=== PATIENT | female | born 1940 | race Caucasian/White ===

== ENCOUNTER 2017-07-05 10:02 | Emergency (ER) | payer MEDICARE, BC ==
[2017-07-05] MEDS ORDERED: Ketorolac Tromethamine 30 MG/ML VIAL ONE ×2 (14:06→14:08)
--- NOTE | 2017-07-05 14:12 | RAD ---
AP VIEW OF THE PELVIS: INDICATION: Tailbone pain. FINDINGS: Overlying bowel gas within the small bowel and the rectum limits evaluation of the lower sacrum and c occyx. The sacral arcs of the upper sacrum appear intact. The SI joints appear within normal limits . There is diffuse osteopenia. There is healed fracture deformity beyond the left obturator ring. There is mild degenerative change of both hips. There is posterolateral spinal instrumentation at L4 -5. There are scattered vascular calcifications. IMPRESSION: 1. No definite acute osseous abnormality. 2. Some limitation of the exam. POS: [facility]
== END 2017-07-05 14:34 | disposition home or self-care (01) ==
LOC: ERS 10:02
DX: G89.29 Other chronic pain (principal); M53.3 Sacrococcygeal disorders, not elsewhere classified; I10 Essential (primary) hypertension; F32.9 Major depressive disorder, single episode, unspecified; M81.0 Age-related osteoporosis without current pathological fracture
CPT/HCPCS: 72170; 96372; J1885

== ENCOUNTER 2018-03-19 08:12 | Emergency (ER) | payer MEDICARE, BC ==
[2018-03-19] MEDS ORDERED: Methocarbamol 500 MG TAB PO SCH (09:00)
--- NOTE | 2018-03-19 10:50 | RAD ---
3 VIEWS LUMBAR SPINE: Date; 03/19/18 COMPARISON: CT abdomen and pelvis dated 12/21/16. HISTORY: Chronic back pain with recent worsening. FINDINGS: Atherosclerotic calcification of the abdominal aorta. The bones are demineralized, significantly limi ting assessment of the osseous structures for fracture. Bilateral L5 and S1 pedicle screws are presen t with vertically oriented interlocking rods. There is an anterior wedge compression fracture of T12, which is stable when compared to 12/21/16 CT of abdomen and pelvis. There is a mild superior end omar te fracture of L1, new when compared to the prior CT. There is a new fracture of the L3 vertebral bod y, not well delineated secondary to osteopenia, which appears to primarily involve the inferior end p late with estimated height loss of at least 40-50%. IMPRESSION: Osteopenia limits detailed assessment. Fracture of L1 and L3 vertebral bodies, new when compared to p rior CT. Old T12 fracture. The extent of fracture deformity could be best assessed via CT examination. POS: [facility]
--- NOTE | 2018-03-19 12:33 | CT ---
CT OF THE LUMBAR SPINE: Date: 03/19/18 COMPARISON: CT of abdomen and pelvis dated 12/21/16. HISTORY: Back pain, assess for fracture. TECHNIQUE: Axial CT imaging at 2.5 mm intervals from the lower thoracic spine through the lower sacrum without c ontrast. Coronal and sagittal reformatted imaging obtained. FINDINGS: The osseous structures are markedly osteopenic, which limits detailed assessment for nondisplaced fra cture. Bilateral L5 and S1 pedicle screws are present with vertically oriented interlocking rods. There is a nterolisthesis of L5 on S1 measuring approximately 8.0 mm. There is a large, stable, incompletely imaged hiatal hernia. Incompletely imaged small left pleural e ffusion. Mild linear density noted in medial right lung base. Limited assessment of the vascular structures without contrast media demonstrates extensive multifoca l atherosclerotic calcification of the abdominal aorta and its branches. There is extensive incompletely assessed sigmoid diverticulosis without evidence for diverticulitis. There is a small, low density lesion within the anterior aspect of the right renal mid pole, unchange d when compared to the 2016 exam. There is an adrenal mass on the left measuring at least 5.3 cm AP dimension and 4.7 cm in transverse dimension, incompletely characterized on this exam. Of note, this mass does not appear significantly changed when compared to CT angiogram of abdomen latisha ed 11/05/15. A severe anterior wedge compression fracture with complete loss of vertebral body height is noted at T12. The degree of vertebral body height loss has worsened significantly when compared to the 7 exam. When compared to that most recent prior exam, there is a new superior end plate fracture of L 1 with approximately 15-20% loss of vertebral body height centrally. There is a new anterior wedge co mpression fracture, primarily involving the inferior end plate at L3, with approximately 40% loss of vertebral body height anteriorly. Evaluation for central canal and/or neural foraminal stenosis is limited on routine CT. T11-12: Mild retropulsion associated with T12 burst fracture, with probably mild central canal steno sis. T12-L1: No osseous cause of significant central canal or neural foraminal stenosis. L1-2: Left foraminal and post foraminal disc protrusion present. No osseous cause of significant alon tral canal or neural foraminal stenosis. L2-3: Foraminal and post foraminal disc protrusion on the left. Mild bilateral facet hypertrophy. No osseous cause of significant central canal or neural foraminal stenosis. L3-4: Mild bilateral facet hypertrophy. Disc osteophytic complex present with probable mild central canal stenosis and probable mild neural foraminal stenosis. No significant osseous retropulsion is se en involving the L3 vertebral body fracture. L4-5: Bilateral facet hypertrophy. No osseous cause of significant central canal or neural foraminal stenosis. L5-S1: Evaluation is limited secondary to streak artifact from postoperative hardware. No obvious os seous cause of significant central canal or neural foraminal stenosis. Stable old fracture involving lateral aspect of left sacral ala noted. There is increased density within the paraspinal soft tissues anterior to the L1 vertebral body sugge sting that this fracture is definitely acute. IMPRESSION: 1. New fractures of L1 and L3, and interval worsening of vertebral body height loss involving T12 bu rst fracture. 2. Stable left adrenal mass. 3. Diffuse marked osteopenia. 4. Sigmoid diverticulosis without evidence for diverticulitis. Of note, increased density in the anterior paraspinal soft tissues at L1 suggests that this fracture is definitely acute. No such soft tissue swelling is seen at L3, and thus, this fracture is of indete rminate age. POS: [facility]
[2018-03-19 15:31] LABS: #Lymphocytes 0.9 thou/uL (1.20-3.40); #Monocytes 0.5 thou/uL (0.11-0.59); #Neutrophils 5.9 thou/uL (1.40-6.50); %Basophils 0.2 % (0.0-1.0); %Eosinophils 0.1 % (0.0-10.0); %Lymphocytes 12.3 % (21.0-51.0); %Monocytes 7.3 % (0.0-10.0); %Neutrophils 80.1 % (42.0-75.0); Hemoglobin 11.3 g/dL (12.0-16.0); Mean Corpuscular HGB CONC 32.5 g/dL (32.0-36.0); Mean Corpuscular Volume 92.1 fL (78.0-98.0); Mean Platelet Volume 7.6 fL (7.4-10.4); Platelet Count 154 thou/uL (130-400); RBC Distribution Width 12.2 % (11.5-14.5); Red Blood Cell (RBC) Count 3.77 mill/uL (4.20-5.40); White Blood Cell (WBC) Count 7.3 thou/uL (4.8-10.8)
[2018-03-19 15:47] LABS: ALT (SGPT) 15 U/L (8-55); AST (SGOT) 18 U/L (5-34); Albumin 4.2 g/dL (3.4-4.8); Alkaline Phosphatase 46 U/L (40-150); Anion Gap 14 mmol/L (10-20); BUN (Urea Nitrogen) 16 mg/dL (9.8-20.1); Bilirubin, Total 0.6 mg/dL (0.2-1.2); Calc. Creatinine Clearance 0 mL/min (70-130); Calcium 10.4 mg/dL (7.8-10.44); Carbon Dioxide 30 mmol/L (23-31); Chloride 100 mmol/L (98-107); Estimated GFR-MDRD 80; Globulin 3.3 g/dL (2.4-3.5); Glucose 138 mg/dL (83-110); Potassium 4.1 mmol/L (3.5-5.1); Protein, Total 7.5 g/dL (6.0-8.3); Sodium 140 mmol/L (136-145)
== END 2018-03-19 17:13 ==
LOC: ERS 08:12
DX: S22.081A Stable burst fracture of T11-T12 vertebra, initial encounter for closed fracture (principal); I10 Essential (primary) hypertension; F32.9 Major depressive disorder, single episode, unspecified; Z79.899 Other long term (current) drug therapy; X58.XXXA Exposure to other specified factors, initial encounter
CPT/HCPCS: 36415; 72100; 72131; 80053; 85025

== ENCOUNTER 2018-09-05 09:00 | Emergency (ER) | payer MEDICARE, BC ==
--- NOTE | 2018-09-05 09:58 | RAD ---
XR Chest 1 View Portable History: Reason For Study Comparison: None. Findings: Abnormal nodular densities in left lower lobe. Exam is limited due to rightward patient rot ation. Heart size mildly enlarged. Likely a sliding hiatal hernia. Aortic ectasia. Moderate degenerative disease left shoulder. No acute osseous abnormality. Calcified granulomas right lower lobe. Impression: 1. Nodular densities left lower lobe. Nonemergent CT chest recommended. 2. Right distal clavicular osteolysis. 3. Mild cardiomegaly and aortic ectasia. 4. Likely large sliding hiatal hernia.
[2018-09-05 10:02] LABS: #Basophils 0.1 thou/uL (0.0-0.2); #Eosinphils 0.2 thou/uL (0.0-0.7); #Lymphocytes 1.6 thou/uL (1.20-3.40); #Monocytes 0.6 thou/uL (0.11-0.59); #Neutrophils 6.5 thou/uL (1.40-6.50); %Basophils 0.6 % (0.0-1.0); %Eosinophils 1.7 % (0.0-10.0); %Lymphocytes 18.4 % (21.0-51.0); %Monocytes 6.5 % (0.0-10.0); %Neutrophils 72.8 % (42.0-75.0); Hemoglobin 12.9 g/dL (12.0-16.0); Mean Corpuscular HGB CONC 33.9 g/dL (32.0-36.0); Mean Corpuscular Hemoglobin 31.9 pg (27.0-31.0); Mean Corpuscular Volume 94.2 fL (78.0-98.0); Platelet Count 206 thou/uL (130-400); RBC Distribution Width 12.9 % (11.5-14.5); Red Blood Cell (RBC) Count 4.04 mill/uL (4.20-5.40); White Blood Cell (WBC) Count 8.9 thou/uL (4.8-10.8)
[2018-09-05 10:15] LABS: ALT (SGPT) 18 U/L (8-55); AST (SGOT) 17 U/L (5-34); Albumin 4.1 g/dL (3.4-4.8); Alkaline Phosphatase 60 U/L (40-150); Anion Gap 9 mmol/L (10-20); BUN (Urea Nitrogen) 15 mg/dL (9.8-20.1); Bilirubin, Total 0.3 mg/dL (0.2-1.2); Calc. Creatinine Clearance 0 mL/min (70-130); Calcium 10.3 mg/dL (7.8-10.44); Carbon Dioxide 34 mmol/L (23-31); Chloride 98 mmol/L (98-107); Estimated GFR-MDRD 77; Glucose 100 mg/dL (83-110); Potassium 3.5 mmol/L (3.5-5.1); Protein, Total 7.1 g/dL (6.0-8.3); Sodium 137 mmol/L (136-145)
[2018-09-05 11:52] LABS: Bilirubin Negative (Negative); Blood, Urine Negative (Negative); Clarity CLOUDY (Clear); Glucose, Urine (Dipstick) Negative (Negative); Leukocyte Large (Negative); Nitrite Positive (Negative); Protein, Urine (Dipstick) Negative (Neg-Trace); Specific Gravity, Urine 1.009 (1.002-1.036); pH, Urine 7.5 (5.0-9.0)
[2018-09-05 12:02] LABS: Bacteria/HPF 4+ HPF (None Seen); Hyaline Casts/LPF 0-3 HYALINE CAST LPF (0-3 Hyaline); Pathc Cast-AUWi Flag 0.13 (0-2.49); RBC/HPF 0-3 HPF (0-3); Squamous Epithelial None Seen HPF (0-3)
[2018-09-05] MEDS ORDERED: cefTRIAXone\\ROCEPHIN 2 GM VIAL ONE (12:50)
[2018-09-05] MEDS ORDERED: cloNIDine 0.1 MG TAB ONE (14:07)
--- NOTE | 2018-09-09 15:07 | EKG ---
Test Reason : Blood Pressure : / mmHG Vent. Rate : 073 BPM Atrial Rate : 073 BPM P-R Int : 188 ms QRS Dur : 098 ms QT Int : 402 ms P-R-T Axes : 035 045 062 degrees QTc Int : 442 ms Normal sinus rhythm Possible Left atrial enlargement Borderline ECG Confirmed by SEVERINO ARAIZA ([id number]), film or videotape editor RAMO VILLAREAL ([id number]) on 09/09/2018 3:07:35 PM Referred By: Confirmed By:SEVERINO ARAIZA
== END 2018-09-05 14:15 | disposition home or self-care (01) ==
LOC: ERS 09:00
DX: I10 Essential (primary) hypertension (principal); N39.0 Urinary tract infection, site not specified; F32.9 Major depressive disorder, single episode, unspecified
CPT/HCPCS: 71045; 80053; 81003; 81015; 83880; 84484; 85025; 87077; 87086; 87186; 93005; 96361; 96365; J0696

== ENCOUNTER 2018-09-08 15:10 | Emergency (ER) | payer MEDICARE, BC ==
[2018-09-08 15:57] LABS: Bilirubin Negative (Negative); Blood, Urine Negative (Negative); Clarity CLEAR (Clear); Glucose, Urine (Dipstick) Negative (Negative); Leukocyte Negative (Negative); Nitrite Negative (Negative); Protein, Urine (Dipstick) Negative (Neg-Trace); Specific Gravity, Urine 1.004 (1.002-1.036); Urobilinogen 0.2 mg/dL (0.2-1.0); pH, Urine 7.5 (5.0-9.0)
[2018-09-08 15:58] LABS: #Lymphocytes 1.8 thou/uL (1.20-3.40); #Monocytes 0.5 thou/uL (0.11-0.59); #Neutrophils 5.8 thou/uL (1.40-6.50); %Basophils 0.5 % (0.0-1.0); %Eosinophils 0.3 % (0.0-10.0); %Lymphocytes 22.3 % (21.0-51.0); %Monocytes 5.8 % (0.0-10.0); %Neutrophils 71.1 % (42.0-75.0); Hemoglobin 12.9 g/dL (12.0-16.0); Mean Corpuscular HGB CONC 34.3 g/dL (32.0-36.0); Mean Corpuscular Hemoglobin 31.7 pg (27.0-31.0); Mean Corpuscular Volume 92.4 fL (78.0-98.0); Platelet Count 226 thou/uL (130-400); RBC Distribution Width 12.7 % (11.5-14.5); Red Blood Cell (RBC) Count 4.06 mill/uL (4.20-5.40); White Blood Cell (WBC) Count 8.2 thou/uL (4.8-10.8)
[2018-09-08 16:21] LABS: ALT (SGPT) 18 U/L (8-55); AST (SGOT) 20 U/L (5-34); Albumin 4.4 g/dL (3.4-4.8); Alkaline Phosphatase 63 U/L (40-150); Anion Gap 12 mmol/L (10-20); BUN (Urea Nitrogen) 15 mg/dL (9.8-20.1); Bilirubin, Total 0.5 mg/dL (0.2-1.2); CK (CPK) 29 U/L (29-168); Calc. Creatinine Clearance 0 mL/min (70-130); Calcium 11.4 mg/dL (7.8-10.44); Carbon Dioxide 30 mmol/L (23-31); Chloride 91 mmol/L (98-107); Estimated GFR-MDRD 82; Glucose 107 mg/dL (83-110); Protein, Total 7.4 g/dL (6.0-8.3); Sodium 129 mmol/L (136-145)
[2018-09-08] MEDS ORDERED: Naproxen 500 MG TAB ONE (16:35)
== END 2018-09-08 18:55 | disposition home or self-care (01) ==
LOC: ERS 15:10
DX: E87.1 Hypo-osmolality and hyponatremia (principal); F32.9 Major depressive disorder, single episode, unspecified; M81.0 Age-related osteoporosis without current pathological fracture; Z79.899 Other long term (current) drug therapy; Z79.891 Long term (current) use of opiate analgesic
CPT/HCPCS: 36415; 80053; 81003; 82550; 83605; 83880; 84484; 85025; 99285